=== PATIENT | female | born 1985 | race Caucasian/White ===

== ENCOUNTER 2023-02-09 11:15 | Outpatient (CLI) | payer OTHER | END 2023-02-09 11:16 | disposition home or self-care (01) | LOC: BICMAMMO 11:15 | PROVIDERS: ATTEND Obstetrics & Gynecology | DX: Z12.31 Encounter for screening mammogram for malignant neoplasm of breast (principal) | CPT/HCPCS: 77063; 77067 ==

== ENCOUNTER 2024-08-19 14:14 | Outpatient (CLI) | payer OTHER | END 2024-08-19 14:15 | disposition home or self-care (01) | LOC: BICMAMMO 14:14 | PROVIDERS: ATTEND Obstetrics & Gynecology | DX: N63.31 Unspecified lump in axillary tail of the right breast (principal) | CPT/HCPCS: 77066; G0279 ==